=== PATIENT | male | born 1940 | race Caucasian/White ===

== ENCOUNTER 2016-12-11 10:03 | Inpatient (IN) ==
--- NOTE | 2016-12-11 11:58 | Diag Imaging Result Doc PS360 ---
EXAM: CHEST-2 VIEWS HISTORY: SOB TECHNIQUE: PA and lateral chest COMMENT: There is considerable pleural thickening on the right. There are fibrotic opacities in the right lung. There is cardiomegaly. Compared to 12/01/2015 there has been no significant change in the appearance of the chest. IMPRESSION: Stable chest. Electronically signed by Jameson Gutierrez 12/11/2016 11:56 AM
[2016-12-11 12:10] LABS: INR 1.12; PROTIME 11.8 Seconds (9.2-11.7)
--- NOTE | 2016-12-11 12:22 | Diag Imaging Result Doc PS360 ---
EXAM: US ABDOMEN-COMPLETE HISTORY: nausea TECHNIQUE: Transabdominal COMMENT: The visualized portions of the aorta, inferior vena cava, and portal vein are within normal limits with antegrade flow in the portal vein. The common bile duct measures 4 mm and otherwise there is no evidence of biliary dilatation. The gallbladder is clear and nontender. The liver is somewhat inhomogeneous and lobulated in appearance and slightly hyperechoic generally which may be indicative of hepatic steatosis. The spleen is not enlarged. Both kidneys are somewhat atrophic in appearance without evidence of hydronephrosis or mass. There is a cyst measuring 9 mm in the midportion of the right kidney and a lower pole cyst on the left measuring 1.5 cm. The right kidney is 8.8 cm in length the left is 7.6 cm. There are no abnormal fluid collections. IMPRESSION: 1. Hepatic steatosis versus cirrhosis. 2. Renal atrophy. Electronically signed by Jameson Gutierrez 12/11/2016 12:20 PM
[2016-12-11 12:27] LABS: BASO% 0.2 % (0.0-0.8); HEMATOCRIT 39.6 % (42.0-52.0); HEMOGLOBIN 13.6 g/dL (14.0-18.0); IMM GRAN# 0.05 X1000 (0.0-0.04); IMM GRAN% 0.5 % (0.0-0.5); LYMPH# 0.64 X1000 (1.2-3.4); LYMPH% 5.9 % (20.5-51.1); MANUAL DIFF NEEDED? YES; MCH 30.2 PG (27-31); MCHC 34.3 g/dL (33-37); MCV 87.8 FL (81-99); MONO# 0.85 X1000 (0.11-0.59); MONO% 7.9 % (1.7-9.3); MPV 9.6 FL (7.4-10.4); NEUT% 85.5 % (42.2-75.2); PLT 229 X1000 (130-400); RBC 4.51 XMIL (4.7-6.1)
[2016-12-11 12:28] LABS: ALBUMIN 4.8 g/dL (3.5-5.0); CALCIUM 9.9 mg/dL (8.8-10.2); POTASSIUM 3.9 mmol/L (3.5-5.1); TOTAL BILIRUBIN 0.99 mg/dL (0.20-1.00); TOTAL PROTEIN 7.9 g/dL (6.3-8.3)
[2016-12-11 12:33] LABS: LYMPHS 3 % (21-51); MONO 8 % (1-9)
[2016-12-11] MEDS ORDERED: DEMADEX PO SCH (21:15)
[2016-12-11] MEDS ORDERED: IMDUR PO SCH (21:15)
[2016-12-11] MEDS ORDERED: ZOCOR PO SCH (21:15)
[2016-12-11] MEDS ORDERED: CARDIZEM CD PO SCH (21:15)
--- NOTE | 2016-12-11 22:56 | HISTORY AND PHYSICAL ---
CHIEF COMPLAINT: Abdominal bloating, distention, shortness of breath. HISTORY OF PRESENT ILLNESS: He is a 76-year-old pleasant white gentleman who was evaluated in the office today with the above symptoms. Apparently, patient was not seen in my office since 12/29/2015. He was going to Dr. Martinez in [place]. Currently he is a poor historian. He has this new onset of abdominal swelling and appears to be swollen up and possible ascites. He has history of chronic congestive heart failure with pulmonary hypertension. He is on blood thinners. He was seen last week and he was told that they need to remove the fluid from the belly. He did not have any pedal edema. He has decreased breath sounds in the right side of the lung. He has a bloating sensation for 1 week after eating and swelling. He has been hospitalized for the evaluation of new onset of bloating as well as possible ascites. I do not have any reports from [facility]. Apparently he was admitted a few months ago at [facility]. He was told that they needed to remove the fluid from the abdomen. PAST MEDICAL HISTORY: Adenomatous polyps of the colon, paroxysmal atrial fibrillation with AV tejal ablation, lipoma of the left forearm, COPD, chronic diastolic heart failure with severe MR and TR, coronary artery disease, type 2 diabetes, hypertension, acid reflux disease, hyperlipidemia, hyperuricemia, chronic pleural effusion on the right side with scarring, CA of prostate, pterygium excision on the right side. PAST SURGICAL HISTORY: Pacemaker with implantable defibrillator bypass surgery, thoracentesis in the right side, bilateral cataract surgery, hemorrhoidectomy, pterygium excision. MEDICATIONS IN MY OFFICE: Aldactone 25 mg daily, allopurinol 100 mg daily, Claritin 10 mg daily, Coreg 3.125 mg p.o. b.i.d., diltiazem 240 mg daily, Eliquis 2.5 mg p.o. b.i.d., hydralazine 25 mg half tablet t.i.d., isosorbide 60 mg daily, Nitrostat as needed, Protonix 40 mg daily, torsemide 100 mg daily, Zocor 40 mg daily. ALLERGIES: Not known. SOCIAL HISTORY: Lives in [place]. Retired from garbage truck driver. , 1 kid. FAMILY HISTORY: Father of heart attack at 58. Mom of heart attack at 71. HEALTH MAINTENANCE: Last flu vaccine in 2016, pneumococcal vaccine 2016, colonoscopy 2014, last prostate exam December 2015. REVIEW OF SYSTEMS: HEENT: No vision problem, no headache, no sore throat. Neck: No goiter. No lymphadenopathy. No bruit. Cardiopulmonary: No chest pain. Exertional shortness of breath. No PND. No orthopnea. Pacemaker was seen. Gastrointestinal: Nausea, abdominal distention and swelling. No constipation. No bleeding per rectum. Taking magnesium. GENITOURINARY: No history of hesitancy, frequency. Extremities: No swelling of feet. No joint pain. Neurologic: No obvious weakness or seizures. PHYSICAL EXAMINATION: GENERAL: He is 5 feet 3 inches, 119 pounds. His baseline weight is 120 pounds. VITAL SIGNS: Afebrile. Vitals are stable. HEENT: Atraumatic, normocephalic. Pupils equal, reactive to light. TMs are normal. Nose and throat within normal limits. NECK: Supple. No lymphadenopathy. No goiter. JVD slightly elevated. CHEST: Decreased breath sounds in the right base. HEART: The heart sounds are regular. No murmurs. GASTROINTESTINAL: Belly is soft and protuberant, distended. No obvious fluid-filled present. No signs of peritonitis. RECTAL: Heme negative. EXTREMITIES: No peripheral edema or cyanosis. NEUROLOGIC: No obvious neurological deficits noted. INVESTIGATIONS: CBC: White cell count 10, hematocrit 39, platelets 229,000. PT 11, INR 1.1. Sodium 128, potassium 3.9, chloride 83, BUN 68, creatinine 1.9. LFTs were normal. ProBNP 1490. TSH is normal. Chest x-ray stable chest, pleural thickening on the right side with fibrotic changes, cardiomegaly and pacemaker AICD on the left side of the chest noted. Ultrasound renal atrophy. Both kidneys somewhat atrophic. Right kidney 8.8 cm, left side is 1.76 cm. Antegrade flow in the portal veins, hepatic steatosis versus cirrhosis. Gallbladder is clear and nontender. Spleen is not enlarged. No abnormal fluid collection noted. ASSESSMENT AND PLAN: 1. A 76-year-old white gentleman, admitted to the hospital basically with abdominal distention, swelling and rule out ascites. Ultrasound of the abdomen findings noted. No need for paracentesis. Rule out gallbladder disease. Ultrasound is negative. We will check the HIDA scan. 2. Chronic diastolic heart failure with over diuresis with hyponatremia and azotemia. Decrease the torsemide 100 daily. Last EF is 50%. 3. Moderate mitral regurgitation and tricuspid regurgitation. Stable with pulmonary hypertension. 4. Coronary artery disease with status post bypass in 2000. Last left heart catheterization May 2011. 5. Hyperlipidemia on Zocor. 6. Acid reflux disease on Protonix. 7. Paroxysmal atrial fibrillation with ablation with coronary artery disease on Eliquis and Imdur. 8. Type 2 diabetes controlled on the diet. 9. Chronic kidney disease with medical renal disease. Baseline creatinine is 2.0. Stable. 10. History of prostate cancer under the care of Dr. Lovett. We will check the PSA. We will also request the reports from [facility]. Based on that, further recommendations will be followed. cc: Mane Owen MD
[2016-12-11] MEDS: ELIQUIS PO SCH (23:21)
[2016-12-11] MEDS: ALDACTONE PO SCH (23:21)
[2016-12-11] MEDS: DUONEB (A & A) INH PRN (23:25)
[2016-12-11] MEDS: MILK OF MAGNESIA PO SCH (23:42)
[2016-12-12 06:54] LABS: CALCIUM 9.1 mg/dL (8.8-10.2); MAGNESIUM 3.8 mg/dL (1.5-2.7); POTASSIUM 3.7 mmol/L (3.5-5.1)
[2016-12-12] MEDS ORDERED: SYMBICORT 160/4.5 MICROGM INHALER INH SCH (07:30)
[2016-12-12] MEDS ORDERED: DEMADEX PO SCH (09:00)
[2016-12-12] MEDS ORDERED: ELIQUIS PO SCH (09:00)
[2016-12-12] MEDS ORDERED: THERA M PLUS PO SCH (09:00)
[2016-12-12] MEDS ORDERED: ALDACTONE PO SCH (09:00)
[2016-12-12] MEDS ORDERED: ZYRTEC PO SCH (09:00)
[2016-12-12] MEDS ORDERED: MILK OF MAGNESIA PO SCH ×2 (09:00)
[2016-12-12] MEDS ORDERED: PROTONIX PO SCH (09:00)
[2016-12-12] MEDS ORDERED: ASPIRIN EC PO SCH (09:00)
--- NOTE | 2016-12-12 09:09 | PROGRESS NOTE ---
DATE: 12/12/2016 SUBJECTIVE: The patient complains of abdominal bloating. Old charts were reviewed from [facility]. He had a CT of the abdomen and pelvis done in September 2016. The patient is not in the room, went for HIDA scan. Patient was seen in the Nuclear Medicine Department. OBJECTIVE: General: On examination she is afebrile. Vital Signs: Stable. 118 pounds. Intake and out positive 960 mL. Chest: Clear. Abdomen: Belly is soft, nontender. Good bowel sounds. INVESTIGATIONS: SMA 7: Sodium 136, potassium 3.7, BUN 63, creatinine 1.7, magnesium 3.8. B 12 and TSH is normal. PSA is pending. ASSESSMENT AND PLAN: 1. Hypermagnesemia. Decreased Mag Oxide 15 mL daily. 2. Over diuresis. Hyponatremia improving. Decrease the Demadex to 100 daily. 3. Abdominal bloating and distention. Gallbladder is clear. Rule out acalculous cholecystitis. Will do the HIDA scan. There is no fluid or ascites needs to be tapped. 4. Carcinoma of prostate. Follow up on PSA and reconcile home medicines. We will discuss the plan of care with family after the HIDA scan. cc: Mane Owen MD
--- NOTE | 2016-12-12 09:21 | Diag Imaging Result Doc PS360 ---
HIDA SCAN W/ EJECTION FRACTION - 12/12/2016 INDICATION: abdominal bloating COMPARISON: None FINDINGS: 5.5 millicuries of Choletec was administered. There is normal uptake and clearance by the liver. There is normal excretion into the gallbladder and small bowel. A fatty meal was given. The gallbladder ejection fraction is 27%. IMPRESSION: Abnormally low gallbladder ejection fraction suggesting chronic cholecystitis or biliary dyskinesia. An abnormally low ejection fraction (less than 35%) can be present in patients without gallbladder dyskinesis or chronic cholelithiasis to have other medical conditions. These include but are not limited to, patients with diabetic mellitus, irritable bowel syndrome, , gastroenteritis. peptic ulcer disease, and patients receiving morphine or nifedipine. Electronically signed by Gallo Saab 12/12/2016 9:19 AM
--- NOTE | 2016-12-12 09:22 | Diag Imaging Result Doc PS360 ---
EXAM: ABDOMEN FLAT/UPRIGHT HISTORY: pain TECHNIQUE: Three views COMPARISON: None. FINDINGS: No free air beneath the diaphragm. There is a small right-sided pleural effusion versus pleural thickening. The bowel loops are not distended. No organomegaly. Mild scoliosis. Small pieces of metal overlying the pelvis believed to be prostatic implants. IMPRESSION: No acute abdominal abnormality identified. Electronically signed by Kaiser Gonzáles 12/12/2016 9:20 AM
[2016-12-12] MEDS: ELIQUIS PO SCH (09:33)
[2016-12-12] MEDS: ALDACTONE PO SCH (09:33)
[2016-12-12] MEDS: APRESOLINE PO SCH ×3 (09:33→17:40)
[2016-12-12] MEDS: MILK OF MAGNESIA PO SCH (09:42)
[2016-12-12] MEDS: DUONEB (A & A) INH PRN ×2 (11:20→15:12)
[2016-12-12 16:32] VITALS: BP 116/56
--- NOTE | 2016-12-12 21:51 | DISCHARGE SUMMARY ---
ADMISSION DATE: 12/11/2016 DISCHARGE DATE: 12/12/2016 DISCHARGING DIAGNOSIS: Abdominal bloating and distention due to acalculous cholecystitis. HIDA scan is positive 27%. SECONDARY DIAGNOSES: 1. Hypomagnesemia. 2. Chronic kidney failure, creatinine 2.0. 3. Chronic diastolic heart failure. 4. Pulmonary hypertension. 5. Coronary artery disease status post bypass in 2000. 6. Hyperlipidemia. 7. Acid reflux disease. 8. Atrial fibrillation, status post coronary artery disease with ablation. 9. Type 2 diabetes. 10. History of prostate cancer. PROCEDURES: 1. Ultrasound of the abdomen findings: No ascites noted. Hepatic steatosis versus scarring, renal atrophy, bilateral small kidneys 8 cm with benign cysts. No gallstones. 2. HIDA scan positive 27%. BRIEF HISTORY: Please see the H and P that was done on 12/11/2016. In brief, he is a 76-year-old complicated historian admitted to the hospital with abdominal bloating, distention, shortness of breath. He was told he has fluid in the belly. His belly was distended. He was admitted to the hospital for further workup. HOSPITAL COURSE: 1. Ultrasound findings were reassuring. There was no ascites. His symptoms consistent with gallbladder disease. Ultrasound was negative for gallstone. HIDA scan positive. Results were discussed. He has been tolerating the diet very well. There was no constipation on the x-rays. Chest x-ray was stable. If he continues to have bloating sensation with eating, consider laparoscopic cholecystectomy down the line. 2. Hypermagnesemia. He has been taking magnesium oxide 60 mL per day. I asked the patient to decrease to 15 mL per day. 3. Hyponatremia, azotemia due to over diuresis. Decreased the Demadex 100 once a day. 4. Atrial fibrillation status post ablation, pulmonary hypertension, on Eliquis 2.5 mg p.o. b.i.d. 5. Coronary artery disease status post bypass, stable. 6. Hyperlipidemia, on Zocor. 7. History of acid reflux disease on Protonix. 8. Chronic kidney disease. Baseline creatinine 2.0. Stable. 9. History of prostate cancer. Follow up on PSA was normal. LABORATORIES: CBC: White cell count 10.7, hematocrit 39, platelets 229,000. PT 11, INR 1.1. SMA 7: Sodium 136, potassium 3.7, chloride 89, BUN 60, creatinine 1.7, calcium 9.1, magnesium 3.8. PSA was less than 0.014. B12 and thyroid function tests were normal. DISCHARGE MEDICATIONS: Hydralazine 25 t.i.d., Cardizem 240 daily, Demadex 100 once daily, simvastatin 40 daily, Symbicort 160/4.5 one puff b.i.d., Protonix 40 daily, multivitamin 1 tablet daily, isosorbide 60 daily, aspirin 80 mg daily, DuoNeb as needed, Aldactone 25 p.o. b.i.d., Eliquis 2.5 p.o. b.i.d., cetirizine 10 daily, magnesium oxide 15 mL daily. DISCHARGE INSTRUCTIONS: Follow up in my office in 10 days. I discussed these findings with the patient as well as his . cc: Mane Owen MD
== END 2016-12-12 19:39 | disposition home or self-care (01) ==
LOC: DIRADM 10:03 → 4N 11:17
PROVIDERS: ADMIT Internal Medicine; ATTEND Internal Medicine